=== PATIENT | female | born 1995 | race Caucasian/White ===

== ENCOUNTER 2018-04-01 15:41 | Inpatient (IN) | payer MEDICAID, OTHER ==
[~2018-04-01] VITALS: Ht 165.1 cm; Wt 46.7 kg
[2018-04-01] MEDS ORDERED: AMPICILLIN/SULBACTAM 3 GM in SODIUM CHLORIDE 0.9% 100 ML IV ONE (16:00)
[2018-04-01] MEDS ORDERED: MORPHINE SULFATE 4 MG/ML, 1ML IVPush PRN (16:00)
[2018-04-01] MEDS ORDERED: ONDANSETRON 2MG/ML, 2ML IVPush ONE (16:00)
[2018-04-01] MEDS ORDERED: SODIUM CHLORIDE FLUSH 10ML SYR IVF ONE (16:00)
[2018-04-01] MEDS ORDERED: MORPHINE SULFATE 4 MG/ML, 1ML ONE (16:11)
[2018-04-01] MEDS ORDERED: ONDANSETRON 2MG/ML, 2ML ONE (16:11)
[2018-04-01 16:27] LABS: BASOPHILS # (AUTO) 0.07 x10^3/uL (0-0.1); BASOPHILS % (AUTO) 1 % (0-1); EOSINOPHILS # (AUTO) 0.35 x10^3/uL (0-0.4); EOSINOPHILS % (AUTO) 3 % (1-7); LYMPHOCYTES # (AUTO) 0.79 x10^3/uL (1-3.4); LYMPHOCYTES % (AUTO) 6 % (22-44); MD NO; MEAN CORPUSCULAR HEMOGLOBIN 29.4 pg (27.0-34.8); MEAN CORPUSCULAR HGB CONC 33.9 g/dL (32.4-35.8); MEAN CORPUSCULAR VOLUME 86.8 fL (80-100); MEAN PLATELET VOLUME 7.4 fL (7.4-10.4); MONOCYTES # (AUTO) 0.93 x10^3/uL (0.2-0.8); MONOCYTES % (AUTO) 7 % (2-9); NEUTROPHILS # (AUTO) 11.18 x10^3/uL (1.8-6.8); NEUTROPHILS % (AUTO) 84 % (42-75); PLATELET COUNT 418 x10^3/uL (130-400); RED BLOOD COUNT 5.34 x10^6/uL (3.82-5.3); RED CELL DISTRIBUTION WIDTH 14.2 % (9.6-15.2)
[2018-04-01 16:34] LABS: ALBUMIN 3.8 g/dL (3.4-5.0); ANION GAP 7 mmol/L (5-15); CALCIUM 9.1 mg/dL (8.5-10.1); CHLORIDE 102 mmol/L (98-107); CREATININE 0.68 mg/dL (0.55-1.02)
--- NOTE | 2018-04-01 17:06 | NUR ---
TO IMAGING AT THIS TIME
[2018-04-01] MEDS ORDERED: OMNIPAQUE 350 MG/ML, 75ML BOTTLE ONE (17:22)
[2018-04-01] MEDS ORDERED: SODIUM CHLORIDE 0.9% 1,000 ML IV ONE (18:18)
--- NOTE | 2018-04-01 18:29 | NUR ---
PT TO HAVE LTR STARTED AT THIS TIME
[2018-04-01] MEDS ORDERED: ACETAMINOPHEN 500 MG TABLET PO ONE (18:30)
[2018-04-01] MEDS ORDERED: ACETAMINOPHEN 500 MG TABLET ONE (18:31)
--- NOTE | 2018-04-01 19:03 | NUR ---
ASSUMED CARE OF PATIENT, BEDSIDE REPORT GIVEN FROM LIZ PEGUERO
--- NOTE | 2018-04-01 19:31 | NUR ---
PT AMBULATED TO BATHROOM NO ACUTE DISTRESS NOTED. CALL LIGHT IN PLACE. WILL CONTINUE TO MONITOR.
[2018-04-01] MEDS ORDERED: ALBU6.7H INH (19:59)
[2018-04-01] MEDS ORDERED: BUDE10.2 INH (20:00)
[2018-04-01] MEDS ORDERED: ALBUTEROL/IPRATROPIUM 2.5MG/0.5MG, 3 ML NPPB ONE (20:00)
--- NOTE | 2018-04-01 20:00 | NUR ---
pt resting in room. pulse ox on. oxygen on. call light in place. will continue to monitor.
--- NOTE | 2018-04-01 20:27 | NUR ---
SPOKE WITH KAREL KINGSTON. PROVIDER AWARE OF VS BLOOD CULTURES ORDERED REPORT CALLED INTO LIZ PATEL PRIMARY RN IS AWARE OF VS
[2018-04-01] MEDS ORDERED: BISACODYL 10 MG SUPP PR PRN (21:00)
[2018-04-01] MEDS: HEPARIN 5,000 UNITS/ML, 1ML SQ SCH (21:00)
[2018-04-01] MEDS ORDERED: ACETAMINOPHEN 500 MG TABLET PO PRN (21:00)
[2018-04-01] MEDS ORDERED: POLYETHYLENE GLYCOL 17 GM PACKET PO PRN (21:00)
[2018-04-01] MEDS ORDERED: ONDANSETRON 2MG/ML, 2ML IVPush PRN (21:00)
[2018-04-01 21:02] VITALS: BP 104/65
[2018-04-01] MEDS ORDERED: ALBUTEROL SULFATE 2.5MG/0.5ML ONE (21:14)
[2018-04-01] MEDS ORDERED: ALBUTEROL SULFATE 2.5 MG/3 ML ONE (21:14)
[2018-04-01 21:29] LABS: MICROSCOPIC INDICATED
[2018-04-01 21:30] LABS: CULTURE INDICATED? NO
[2018-04-01] MEDS: ALBUTEROL SULFATE 2.5 MG/3 ML NPPB SCH (21:31)
[2018-04-01] MEDS: BUDESONIDE 0.5 MG/2 ML INHA NPPB SCH (21:31)
[2018-04-01] MEDS: SODIUM CHLORIDE 0.9% 1,000 ML IV SCH (21:34)
[2018-04-01] MEDS: OXYcodone IR 5MG TABLET PO PRN (21:34)
[2018-04-01] MEDS: AMPICILLIN/SULBACTAM 3 GM in SODIUM CHLORIDE 0.9% 100 ML IV SCH (21:58)
[2018-04-02 01:11] VITALS: BP 107/69
[2018-04-02] MEDS: ALBUTEROL SULFATE 2.5 MG/3 ML NPPB SCH ×2 (03:15→07:33)
[2018-04-02] MEDS: AMPICILLIN/SULBACTAM 3 GM in SODIUM CHLORIDE 0.9% 100 ML IV SCH ×3 (03:41→16:45)
[2018-04-02] MEDS: SODIUM CHLORIDE 0.9% 1,000 ML IV SCH ×2 (03:41→10:15)
[2018-04-02] MEDS: HEPARIN 5,000 UNITS/ML, 1ML SQ SCH ×2 (04:23→12:30)
[2018-04-02 06:41] LABS: AMPHETAMINE SCREEN, URINE Positive (Negative); BARBITURATE SCREEN, URINE Negative (Negative); BENZODIAZEPINE SCREEN, URINE Negative (Negative); CANNABINOID SCREEN, URINE Negative (Negative); COCAINE SCREEN, URINE Negative (Negative); METHADONE SCREEN, URINE Negative (Negative); OPIATE SCREEN, URINE Positive (Negative)
[2018-04-02 07:18] LABS: ALBUMIN 3.1 g/dL (3.4-5.0); ANION GAP 6 mmol/L (5-15); CALCIUM 8.4 mg/dL (8.5-10.1); CHLORIDE 108 mmol/L (98-107)
[2018-04-02 07:19] LABS: MEAN CORPUSCULAR HEMOGLOBIN 28.6 pg (27.0-34.8); MEAN CORPUSCULAR HGB CONC 32.6 g/dL (32.4-35.8); MEAN CORPUSCULAR VOLUME 87.7 fL (80-100); MEAN PLATELET VOLUME 7.7 fL (7.4-10.4); PLATELET COUNT 394 x10^3/uL (130-400); RED BLOOD COUNT 5.03 x10^6/uL (3.82-5.3); RED CELL DISTRIBUTION WIDTH 14.3 % (9.6-15.2)
[2018-04-02 07:22] LABS: ALANINE AMINOTRANSFERASE 30 U/L (12-78); ALKALINE PHOSPHATASE 78 U/L (45-117); BILIRUBIN,TOTAL 0.3 mg/dL (0.2-1.0); CREATININE 0.62 mg/dL (0.55-1.02); HEMOGRAM NOTE RECHECKED; TOTAL PROTEIN 7.7 g/dL (6.4-8.2)
[2018-04-02] MEDS ORDERED: ALBUTEROL SULFATE 2.5 MG/3 ML ONE (07:29)
[2018-04-02] MEDS: BUDESONIDE 0.5 MG/2 ML INHA NPPB SCH (07:33)
[2018-04-02 07:52] LABS: BASOPHILS # (AUTO) 0.02 x10^3/uL (0-0.1); BASOPHILS % (AUTO) 0 % (0-1); EOSINOPHILS % (AUTO) 0 % (1-7); LYMPHOCYTES # (AUTO) 0.37 x10^3/uL (1-3.4); LYMPHOCYTES % (AUTO) 4 % (22-44); MD SCAN; MONOCYTES % (AUTO) 1 % (2-9); NEUTROPHILS # (AUTO) 9.76 x10^3/uL (1.8-6.8); NEUTROPHILS % (AUTO) 95 % (42-75)
[2018-04-02 08:22] VITALS: BP 105/68
[2018-04-02] MEDS ORDERED: SENNA/DOCUSATE TABLET PO SCH (09:00)
[2018-04-02] MEDS: KETOROLAC 30 MG/1 ML IV PRN ×2 (10:15→16:45)
[2018-04-02] MEDS: OXYcodone IR 5MG TABLET PO PRN (12:55)
[2018-04-02 15:17] VITALS: BP 107/68
[2018-04-02] MEDS ORDERED: ALBUTEROL SULFATE 2.5 MG/3 ML NPPB PRN (21:30)
== END 2018-04-02 18:40 | disposition left against medical advice (07) | DRG 871 ==
LOC: ED 19:51 → EDIP 19:56 → 3NE 20:58
PROVIDERS: ADMIT Internal Medicine; ATTEND Internal Medicine
DX: A41.9 Sepsis, unspecified organism (principal); J96.01 Acute respiratory failure with hypoxia; E87.1 Hypo-osmolality and hyponatremia; L03.211 Cellulitis of face; J45.41 Moderate persistent asthma with (acute) exacerbation; Z66 Do not resuscitate; F12.10 Cannabis abuse, uncomplicated
CPT/HCPCS: 36415; 99285; J7613; J7626; 70487; 71045; 80048; 80053; 80307; 81001; 82040; 83605; 85025; 87040; 94640; 96365; 96375; G0378; J0295; J1885; J2405; Q9967; J7030; J7512